=== PATIENT | female | born 1980 | race Caucasian/White ===

== ENCOUNTER 2020-05-28 09:40 | Day surgery (SDC) | payer BC ==
[2020-05-28 10:04] VITALS: RESP 16; TEMP 98.5
[2020-05-28 11:33] VITALS: BP 145/78; PULSE 82
--- NOTE | 2020-05-28 18:40 | US ---
EXAMINATION TYPE: US FNA thyroid each add lesion, US biopsy thorax or neck DATE OF EXAM: 05/28/2020 COMPARISON: Thyroid FNA 11/27/2019 and 09/01/2016. Thyroid ultrasound 05/28/2019. HISTORY: Thyroid nodule, E04.1 Preliminary ultrasound imaging demonstrated 1.1 x 0.8 x 1.0 cm hypoechoic heterogenous avascular nodu le of the inferior right thyroid lobe, which is decreased in size from 1.5 cm on 2016 comparison. Thi s right inferior thyroid nodule was the nodule previously fine needle aspirated in August 2016 (path ology demonstrated benign colloid nodule) and November 2019 (pathology demonstrated essentially nondia gnostic acellular specimen). The procedure was discussed with the patient. The risks, complications, benefits, and alternatives we re discussed and any questions were answered. Particularly the risk of repeat nondiagnostic fine-need le aspiration was discussed. Informed consent was obtained. The patient was placed supine on the ultr asound table and prepped and draped in the usual sterile fashion. The skin overlying the nodule was localized with ultrasound and the overlying skin prepped and draped . Lidocaine used for local anesthesia. 4 passes with a 23-gauge needle were made into the nodule unde r ultrasound guidance. Aspirate specimen submitted to the on-site pathologist, who stated there were likely not enough cells for diagnosis and requested core biopsy specimen. A small skin donte was made with a scalpel at the same skin site, and a 18-gauge coaxial core biopsy needle was inserted with one attempt at core biopsy specimen, which did not demonstrate any significant tissue despite targeting a more solid area of the thyroid nodule. The patient declined additional core biopsy attempt. Followi ng the procedure hemostasis achieved. No immediate complication IMPRESSION: Status post ultrasound-guided fine-needle aspiration and core biopsy of thyroid nodule, p athology pending.
== END 2020-05-28 11:45 | disposition home or self-care (01) ==
LOC: MERGE 09:40 → RADPROMAIN 09:40
PROVIDERS: ATTEND Family Medicine
DX: E04.1 Nontoxic single thyroid nodule (principal)
CPT/HCPCS: 10005; 10006; 21550; 60100; 88173; 88305

== ENCOUNTER → 2022-04-04 | Outpatient (CLI) | payer BC ==
--- NOTE | 2022-04-04 12:47 | US ---
EXAMINATION TYPE: US thyroid st tissue head/neck DATE OF EXAM: 04/04/2022 COMPARISON: 05/28/2019 CLINICAL HISTORY: 41-year-old female E04.2 MULTINODULAR GOITER. Follow up thyroid. TECHNIQUE: Multiple sonographic images of the thyroid gland are obtained. FINDINGS: GLAND SIZE: Right Lobe: 5.9 x 2.1 x 1.9 cm Overall Parenchyma: homogenous Left Lobe: 5.0 x 1.9 x 1.5 cm Overall Parenchyma: homogeneous Isthmus Thickness: 0.3 cm NODULES RIGHT: # of nodules measured on right: 3 1. 1.2 X 0.9 x 0.7 cm, mid medial, mixed cystic and solid, primarily solid, TR 4 hypoechoic nodule, which is wider than tall, with smooth margins, without echogenic foci. Prior size: 0.8 x 0.6 x 0.5 cm 2. 1.2 X 0.8 x 0.7 cm, lower lateral, solid or almost completely solid, hypoechoic TR 4 nodule, whi ch is wider than tall, with ill-defined margins, without echogenic foci. Prior size: 1.2 x 1.2 x 0.8 cm 3. 0.5 X 0.4 x 0.3 cm, mid , benign colloid cyst. Prior size: No prior LEFT: # of nodules measured on left: 2 1. 1.0 X 0.7 x 0.6 cm, upper mid, primarily solid, hypoechoic TR 4 nodule, which is wider than tall , with smooth margins, without echogenic foci. Prior size: No prior 2. 0.8 X 0.5 x 0.5 cm, mid lateral, benign colloid cyst. Prior size: no prior ISTHMUS: # of nodules measured in the isthmus: 0 Bilateral neck scanned, no evidence of lymphadenopathy. IMPRESSION: 1. Two TR4 nodules within the right lobe measuring up to 1.2 cm. The nodule at the mid pole shows sli ght increase in size currently 1.2 x 0.9 cm versus 8 x 6 mm, previously. Continued follow-up. FNA if it reaches 1.5 cm. 2. A 1.0 x 0.7 cm TR4 nodule in the left upper to mid pole not identified previously. Reassessed at [facility].
--- NOTE | 2022-04-05 17:29 | MM ---
Reason for Exam: Screening (asymptomatic). Patient History: Menarche at age 12. First Full-Term at age 31. Late child-bearing (after 30). Paternal cousin had breast cancer, age 37. Last menstrual period: 03/26/2022 Risk Values: Adrianna 5 year model risk: 0.8%. NCI Lifetime model risk: 13.5%. Film Views: Bilateral CC views were taken. Bilateral MLO views were taken. Tissue Density: The breast tissue is heterogeneously dense. This may lower the sensitivity of mammography. Findings: Analyzed By CAD. There is no suspicious group of microcalcifications or new suspicious mass in either breast. Overall Assessment: Benign, BI-RAD 2 Management: Screening Mammogram of both breasts in 1 year. A clinical breast exam by your physician is recommended on an annual basis and results should be correlated with mammographic findings. Electronically signed and approved by: Chidi Davalos D.O. Radiologis
== END | disposition home or self-care (01) ==
LOC: RADMAMWWP 08:07
PROVIDERS: ATTEND Family Medicine
DX: Z12.31 Encounter for screening mammogram for malignant neoplasm of breast (principal); E04.2 Nontoxic multinodular goiter; Z80.3 Family history of malignant neoplasm of breast
CPT/HCPCS: 76536; 77067

== ENCOUNTER → 2022-10-18 | Outpatient (CLI) | payer BC ==
--- NOTE | 2022-10-19 08:02 | US ---
EXAMINATION TYPE: US thyroid st tissue head/neck DATE OF EXAM: 10/18/2022 COMPARISON: 04/04/2022 CLINICAL HISTORY: 41-year-old female E04.1 NONTOXIC SINGLE THYROID NODULE. F/u exam TECHNIQUE: Multiple sonographic images of the thyroid gland are obtained. FINDINGS: GLAND SIZE: Right Lobe: 6.3 x 1.9 x 2.3 cm Overall Parenchyma: heterogenous Left Lobe: 5.5 x 1.8 x 1.5 cm Overall Parenchyma: heterogeneous Isthmus Thickness: 0.2 cm NODULES RIGHT: # of nodules measured on right: multiple, the 2 largest are measured- Previous BX 1. 1.2 X 1.2 x 0.6 cm, mid , mixed cystic and solid primarily solid, hypoechoic nodule, which is wi karie than tall, with smooth margins, without echogenic foci. Prior size: 1.2 x 0.9 x 0.7 cm 2. 1.3 X 1.2 x 1.0 cm, lower , solid or almost completely solid, hypoechoic nodule, which is taller than wide, with smooth margins, without echogenic foci. Prior size: 1.2 x 0.8 x 0.7 cm LEFT: # of nodules measured on left: multiple colloid cysts, measured largest 1. 0.9 X 0.6 x 0.6 cm, mid , cystic or almost completely cystic, anechoic nodule, which is wider th an tall, with smooth margins, with echogenic foci. Prior size: 0.8 x 0.5 x 0.5 cm ISTHMUS: # of nodules measured in the isthmus: 0 Bilateral neck scanned, no evidence of lymphadenopathy. IMPRESSION: There are two, solid TR4 nodules in the right lobe which are stable to minimally larger measuring 1.2 x 1.2 cm (versus 1.2 x 0.9 cm, previously) and 1.3 x 1.2 cm (versus 1.2 x 0.8 cm, previously). Ongoi ng follow-up recommended.
== END | disposition home or self-care (01) ==
LOC: RADUSWWP 15:10
PROVIDERS: ATTEND Family Medicine
DX: E04.2 Nontoxic multinodular goiter (principal)
CPT/HCPCS: 76536

== ENCOUNTER → 2023-05-17 | Outpatient (CLI) | payer BC ==
--- NOTE | 2023-05-17 11:09 | US ---
EXAMINATION TYPE: US thyroid st tissue head/neck DATE OF EXAM: 05/17/2023 COMPARISON: Multiple thyroid ultrasounds, most recent 10/18/2022 CLINICAL INDICATION: Female, 42 years old with history of E04.1 NONTOXIC SINGLE THYROID NODULE; GLAND SIZE: Right Lobe: 5.5 x 1.4 x 2.4 cm Overall Parenchyma: heterogenous Left Lobe: 5.5 x 1.5 x 1.9 cm Overall Parenchyma: heterogenous Isthmus Thickness: 0.2 cm NODULES RIGHT: # of nodules measured on right: 2 1. 1.1 X 0.6 x 1.0 cm, mid, solid or almost completely solid, hypoechoic nodule, which is wider lorena n tall, with ill-defined margins, without echogenic foci. TR4. Prior size: 1.2 x 1.2 x 0.6 cm 2. 1.3 X 0.8 x 1.0 cm, lower mid, solid or almost completely solid, hypoechoic nodule, which is terry ler than wide, with ill-defined margins, without echogenic foci. TR4. Prior size: 1.3 x 1.2 x 1.0 cm LEFT: # of nodules measured on left: 1 1. 1.0 X 0.6 x 0.6 cm, mid lateral, cystic or almost completely cystic, anechoic nodule, which is w ider than tall, with smooth margins, with echogenic foci. Prior size: 0.9 x 0.6 x 0.6 cm ISTHMUS: # of nodules measured in the isthmus: 0 Bilateral neck scanned, no evidence of lymphadenopathy. IMPRESSION: Stable bilateral thyroid nodules with 2 right thyroid lobe TR 4 nodules. No new or enlarging thyroid nodules. Follow-up ultrasound in one year is recommended.
== END | disposition home or self-care (01) ==
LOC: RADUSWWP 10:29
PROVIDERS: ATTEND Family Medicine
DX: E04.2 Nontoxic multinodular goiter (principal)
CPT/HCPCS: 76536

== ENCOUNTER → 2024-08-13 | Outpatient (CLI) | payer BC ==
[2024-08-13 11:03] LABS: Basophils # (A) 0.06 X 10*3/uL (0.00-0.10); Basophils % (A) 0.9 %; Eosinophils # (A) 0.33 X 10*3/uL (0.04-0.35); Eosinophils % (A) 4.9 %; HCT 36.8 % (37.2-46.3); HGB 11.4 g/dL (12.0-15.0); Lymphocytes # (A) 2.32 X 10*3/uL (0.90-5.00); Lymphocytes % (A) 34.6 %; Mean Platelet Volume 12.2 FL (9.5-12.2); Monocytes # (A) 0.57 X 10*3/uL (0.20-1.00); Monocytes % (A) 8.5 %; NRBC Per 100 WBC 0 X 10*3/uL (0.00-0.01); Neutrophils # (A) 3.42 X 10*3/uL (1.80-7.70); Platelet Count 248 X 10*3/uL (140-440); RBC 4.23 X 10*6/uL (4.10-5.20); WBC 6.71 X 10*3/uL (4.50-10.00)
[2024-08-13 11:31] LABS: ALT 11 U/L (8-44); AST 18 U/L (13-35); Albumin 4.5 g/dL (3.8-4.9); Albumin/Globulin Ratio 2.05 Ratio (1.60-3.17); Alkaline Phosphatase 56 U/L (41-126); BUN/Creat Ratio 17.14 Ratio (12.00-20.00); Calcium 9.4 mg/dL (8.7-10.3); Carbon Dioxide 23.5 mmol/L (21.6-31.8); Chloride 104 mmol/L (96-109); Chol/HDL Ratio 2.28 Ratio; Globulin 2.2 g/dL (1.6-3.3); Glucose 99 mg/dL (70-110); LDL Cholesterol,Calculated 63.5 mg/dL (0.0-131.0); Potassium 4.4 mmol/L (3.5-5.5); Sodium 139 mmol/L (135-145); T4, Free (Free Thyroxine) 0.88 ng/dL (0.80-1.80); Total Bilirubin 0.3 mg/dL (0.3-1.2); Total Protein 6.7 g/dL (6.2-8.2); VLDL Calculation 12.28 mg/dL (5.00-40.00)
[2024-08-13 11:48] LABS: Appearance,Urine Cloudy (Clear); Bilirubin,Urine Negative (Negative); Blood,Urine Negative (Negative); Color,Urine Yellow (Yellow); Ketones,Urine Negative (Negative); Nitrite,Urine Negative (Negative); Specific Gravity,Urine 1.026 (1.001-1.030); Urobilinogen,Urine 0.2 E.U./DL
[2024-08-13 11:58] LABS: Bacteria,Urine 1+ (None Seen)
== END | disposition home or self-care (01) ==
LOC: LABWHC1 07:42
PROVIDERS: ATTEND Family Medicine
DX: Z00.00 Encounter for general adult medical examination without abnormal findings (principal)
CPT/HCPCS: 36415; 80053; 80061; 81001; 82306; 83036; 84439; 84443; 85025